=== PATIENT | male | born 1945 | race Caucasian/White ===

== ENCOUNTER 2025-07-18 12:22 | Inpatient (IN) | payer OTHER ==
[~2025-07-18] VITALS: Ht 165.1 cm; Wt 77.2 kg
[2025-07-18 12:29] VITALS: BP 130/59
[2025-07-18] MEDS ORDERED: Albuterol Sulf/Ipratropium 3 ML VIAL NEB ONE (12:35)
[2025-07-18 12:51] LABS: BASO # 0.0 10*3/uL (0.0-0.1); BASO % 0.1 % (0.0-1.0); EOS # 0.1 10*3/uL (0.0-0.4); EOS % 0.7 % (1.0-4.0); MEAN CELL VOLUME 97.9 fl (80.0-94.0); MEAN CORPUSCULAR HGB 30.0 pg (27.0-31.0); MEAN PLATELET VOLUME 9.4 fl (9.6-12.3); MONO # 0.5 10*3/uL (0.1-1.0); MONO % 7.1 % (3.0-9.0); NEUT # 5.6 10*3/uL (2.3-7.9); NEUT % 79.8 % (47.0-73.0); NUCLEATED RED BLOOD CELL 0.0 10*3/uL (0.0-0.0); NUCLEATED RED BLOOD CELL 0.3 % (0.0-0.0); PLATELET COUNT AUTOMATED 172 10*3/uL (130-400); RED CELL DISTRI WIDTH 13.4 % (0-14.5)
[2025-07-18 13:13] LABS: BUN 22 mg/dl (9-23); CPK 37 U/L (34-171)
[2025-07-18] MEDS ORDERED: SODIUM CHLORIDE 0.9% 100 ML BAG IV ONE (13:50)
[2025-07-18] MEDS ORDERED: IOHEXOL 350 MG/ML 100 ML VIAL IV ONE (13:50)
[2025-07-18] MEDS ORDERED: DOXAZOSIN4 MG PO (14:00)
[2025-07-18] MEDS ORDERED: BUMETANIDE1 MG PO (14:00)
[2025-07-18] MEDS ORDERED: LIPITOR10 MG PO (14:01)
[2025-07-18] MEDS ORDERED: TAMSULOSIN HCL0.4 MG PO (14:01)
[2025-07-18] MEDS ORDERED: ELIQUIS5 M1 PO (14:01)
[2025-07-18] MEDS ORDERED: TOPROL XL25 MG PO (14:01)
[2025-07-18] MEDS ORDERED: METHENAMINE HIPP1 G1 PO (14:05)
[2025-07-18] MEDS ORDERED: PROSCAR5 M1 PO (14:05)
[2025-07-18 14:06] VITALS: BP 129/68
[2025-07-18] MEDS ORDERED: ACETAMINOPHEN 325 MG TAB PO PRN (16:40)
[2025-07-18] MEDS ORDERED: Ondansetron Hydrochloride 4 MG/2 ML VIAL IV PRN (16:40)
[2025-07-18] MEDS ORDERED: BISACODYL 5 MG TAB PO PRN (16:40)
[2025-07-18] MEDS ORDERED: Albuterol Sulf/Ipratropium 3 ML VIAL NEB SCH (16:50)
[2025-07-18 17:45] VITALS: BP 147/72
[2025-07-18 18:00] VITALS: BP 154/58
[2025-07-18] MEDS ORDERED: AZITHROMYCIN 250 ML IV SCH (18:00)
[2025-07-18] MEDS ORDERED: APIXABAN 5 MG TAB PO SCH (18:05)
[2025-07-18] MEDS ORDERED: LATANOPROST2.5 ML OP (18:28)
[2025-07-18] MEDS ORDERED: DORZOLAMIDE HYD10 M2 OU (18:30)
[2025-07-18] MEDS ORDERED: BRIMONIDINE TART5 ML OS (18:32)
[2025-07-18] MEDS ORDERED: Dorzolamide Hydrochloride/TiMOLOL 2.23%/0.68% 10 ML BOTTLE OPH SCH (18:50)
[2025-07-18 20:00] VITALS: BP 143/83
[2025-07-18 21:52] LABS: BILIRUBIN Negative (Negative); BLOOD 3+ (Negative); CLARITY Cloudy (Clear); COLOR Yellow (Yellow); KETONE Negative (Negative); LEUKO ESTERASE 2+ (Negative); NITRITE Positive (Negative); PH 6.0 (4.5-8.0); SPECIFIC GRAVITY >= 1.030 (1.001-1.030); UROBILINOGEN 0.2 E.U./dl (0.0-1.0)
[2025-07-18] MEDS ORDERED: BRIMONIDINE 0.2% 15 ML BOTTLE OPH SCH (22:00)
[2025-07-18] MEDS ORDERED: LATANOPROST 0.005% 2.5 ML BOTTLE OPH SCH (22:00)
[2025-07-18 22:07] LABS: BACTERIA 2+; RBC 16-20 rbc/hpf (0-2); WBC TNTC wbc/hpf (0-5)
[2025-07-19] VITALS: BP 131/67; BP 162/77
[2025-07-19 06:19] LABS: BASO # 0.0 10*3/uL (0.0-0.1); BASO % 0.2 % (0.0-1.0); EOS # 0.0 10*3/uL (0.0-0.4); EOS % 0.0 % (1.0-4.0); MEAN CELL VOLUME 100.5 fl (80.0-94.0); MEAN CORPUSCULAR HGB 29.6 pg (27.0-31.0); MEAN PLATELET VOLUME 9.5 fl (9.6-12.3); MONO # 0.3 10*3/uL (0.1-1.0); MONO % 4.6 % (3.0-9.0); NEUT # 5.6 10*3/uL (2.3-7.9); NEUT % 87.6 % (47.0-73.0); NUCLEATED RED BLOOD CELL 0.0 % (0.0-0.0); NUCLEATED RED BLOOD CELL 0.0 10*3/uL (0.0-0.0); PLATELET COUNT AUTOMATED 194 10*3/uL (130-400); RED CELL DISTRI WIDTH 13.1 % (0-14.5)
[2025-07-19 06:25] LABS: BUN 19 mg/dl (9-23); SGPT/ALT 12 U/L (5-49)
[2025-07-19 06:28] LABS: VITAMIN D, 25-HYDROXY 70.0 ng/mL (30-100)
[2025-07-19 07:50] VITALS: BP 119/61
[2025-07-19 08:00] VITALS: BP 145/77
[2025-07-19] MEDS ORDERED: METOPROLOL SUCCINATE XR 25 MG TAB PO SCH (10:00)
[2025-07-19] MEDS ORDERED: BUMETANIDE 1 MG TAB PO SCH (10:00)
[2025-07-19] MEDS ORDERED: GUAIFENESIN 600 MG TAB ER PO SCH (10:00)
[2025-07-19] MEDS ORDERED: FINASTERIDE 5 MG TAB PO SCH (10:00)
[2025-07-19] MEDS ORDERED: DOXAZOSIN MESYLATE 4 MG TAB PO SCH (10:00)
[2025-07-19 12:00] VITALS: BP 118/57
[2025-07-19] MEDS ORDERED: Menthol/Zinc Oxide 4 GM THIN T PRN (13:10)
[2025-07-19 16:00] VITALS: BP 118/61
[2025-07-19 20:00] VITALS: BP 142/79
[2025-07-19] MEDS ORDERED: Menthol/Zinc Oxide 4 GM THIN T SCH (22:00)
[2025-07-20] VITALS: BP 126/60
[2025-07-20 06:14] LABS: MEAN CELL VOLUME 100.2 fl (80.0-94.0); MEAN CORPUSCULAR HGB 30.1 pg (27.0-31.0); MEAN PLATELET VOLUME 10.0 fl (9.6-12.3); NUCLEATED RED BLOOD CELL 0.0 % (0.0-0.0); NUCLEATED RED BLOOD CELL 0.0 10*3/uL (0.0-0.0); PLATELET COUNT AUTOMATED 165 10*3/uL (130-400); RED CELL DISTRI WIDTH 13.2 % (0-14.5)
[2025-07-20 06:24] LABS: MANUAL DIFF REFLEX YES
[2025-07-20 06:32] LABS: BUN 27 mg/dl (9-23)
[2025-07-20 06:59] LABS: PLATELET SUFFICIENCY NORMAL (NORMAL)
[2025-07-20 08:00] VITALS: BP 154/65
[2025-07-20] MEDS ORDERED: LEVOFLOXACIN 500 MG TAB PO SCH (10:00)
[2025-07-20 12:00] VITALS: BP 152/67
[2025-07-20] MEDS ORDERED: AMOXICILLIN 500 MG CAP PO SCH (14:00)
[2025-07-20 16:00] VITALS: BP 105/61
[2025-07-20 20:00] VITALS: BP 113/57
[2025-07-20] MEDS ORDERED: Benzocaine/Menthol 1 LOZ LOZENGE PO PRN (20:05)
[2025-07-21] VITALS: BP 128/52
[2025-07-21 06:20] LABS: MEAN CELL VOLUME 98.0 fl (80.0-94.0); MEAN CORPUSCULAR HGB 29.7 pg (27.0-31.0); MEAN PLATELET VOLUME 9.7 fl (9.6-12.3); NUCLEATED RED BLOOD CELL 0.0 % (0.0-0.0); NUCLEATED RED BLOOD CELL 0.0 10*3/uL (0.0-0.0); PLATELET COUNT AUTOMATED 209 10*3/uL (130-400); RED CELL DISTRI WIDTH 13.2 % (0-14.5)
[2025-07-21 06:21] LABS: MANUAL DIFF REFLEX YES
[2025-07-21 06:27] LABS: BUN 31 mg/dl (9-23)
[2025-07-21 07:12] LABS: PLATELET SUFFICIENCY NORMAL (NORMAL)
[2025-07-21 08:00] VITALS: BP 119/67
[2025-07-21 12:00] VITALS: BP 119/58
[2025-07-21 16:00] VITALS: BP 119/58; BP 122/61
[2025-07-21 20:00] VITALS: BP 132/60
[2025-07-22] VITALS: BP 115/82
[2025-07-22 08:00] VITALS: BP 124/55
[2025-07-22 12:00] VITALS: BP 119/59
[2025-07-22 16:00] VITALS: BP 128/63
[2025-07-23 00:40] VITALS: BP 155/77
[2025-07-23 08:00] VITALS: BP 162/66
[2025-07-23 12:00] VITALS: BP 139/65
[2025-07-23] MEDS ORDERED: AMOXICILLIN500 M3 PO (12:43)
[2025-07-23] MEDS ORDERED: PREDNISONE10 MG PO (12:43)
[2025-07-23] MEDS ORDERED: Ipratropium Brom3 ML INH (12:51)
[2025-07-23] MEDS ORDERED: NEBULIZER NEB (12:51)
[2025-07-23 16:00] VITALS: BP 130/55
[2025-07-23 20:00] VITALS: BP 139/63
[2025-07-24] VITALS: BP 140/65
[2025-07-24 08:00] VITALS: BP 146/66
[2025-07-24 12:00] VITALS: BP 128/58; BP 134/50
[2025-07-24 20:00] VITALS: BP 139/72
[2025-07-25] VITALS: BP 148/70
[2025-07-25 08:00] VITALS: BP 150/54
[2025-07-25 12:00] VITALS: BP 129/52
[2025-07-25] MEDS ORDERED: OXYGEN NAS (13:18)
== END 2025-07-25 14:40 | disposition home or self-care (01) | DRG 189 ==
LOC: ED 12:22 → EDHOLD 16:00 → 5E 16:00
PROVIDERS: Emergency Medicine; Student in an Organized Health Care Education/Training Program; ADMIT Internal Medicine; ATTEND Internal Medicine
DX: J96.01 Acute respiratory failure with hypoxia (principal); N30.00 Acute cystitis without hematuria; J44.1 Chronic obstructive pulmonary disease with (acute) exacerbation; E44.0 Moderate protein-calorie malnutrition; Z68.42 Body mass index [BMI] 45.0-49.9, adult; E87.3 Alkalosis; I10 Essential (primary) hypertension; E66.01 Morbid (severe) obesity due to excess calories; R73.9 Hyperglycemia, unspecified; D53.9 Nutritional anemia, unspecified; N40.0 Benign prostatic hyperplasia without lower urinary tract symptoms; B95.2 Enterococcus as the cause of diseases classified elsewhere; Z20.822 Contact with and (suspected) exposure to COVID-19; Z88.8 Allergy status to other drugs, medicaments and biological substances; Z91.09 Other allergy status, other than to drugs and biological substances; Z79.899 Other long term (current) drug therapy; Z79.01 Long term (current) use of anticoagulants; Z79.2 Long term (current) use of antibiotics; Z90.49 Acquired absence of other specified parts of digestive tract; Z82.49 Family history of ischemic heart disease and other diseases of the circulatory system